=== PATIENT | female | born 1975 | race Two or more races ===

== ENCOUNTER 2021-01-07 08:11 | Day surgery (SDC) | payer OTHER ==
[2021-01-07] MEDS ORDERED: NEXIUM 24HR20 MG PO (11:52)
== END 2021-01-07 13:40 | disposition home or self-care (01) ==
LOC: AMB-ENDOS 08:11
PROVIDERS: ATTEND Surgery
DX: D13.1 Benign neoplasm of stomach (principal); K44.9 Diaphragmatic hernia without obstruction or gangrene; Z20.822 Contact with and (suspected) exposure to COVID-19